=== PATIENT | female | born 1970 | race Caucasian/White ===

== ENCOUNTER → 2017-02-27 | Outpatient (CLI) | payer OTHER ==
--- NOTE | 2017-02-28 07:38 | PN ---
PROGRESS NOTE FROM SLEEP CENTER This 46-year-old female patient was diagnosed having obstructive sleep apnea back in 2013. At that time, the patient was given CPAP therapy at pressure of 11 cm of water. After using it for a few months, the patient ended up quitting the treatment as she did not feel it was helping a whole lot. Over the patient 3 years, her condition has gotten worse. She has gained around 5 pounds. She has become much more somnolent and sleep and she is snoring loud and she is waking up gasping for air and she is requesting a re-evaluation. She has bronchial asthma, which seems to be quite active at this point and she is also diagnosed having fibromyalgia. The other comorbid conditions including anxiety, depression, hypothyroidism, hypertension, obesity and diabetes mellitus. No other ( ) in the lower extremities. No sleep walking or sleep talking. No parasomnias. BP is 126/62, pulse 102, respirations 16, temperature 97.4, BMI is 48.5. Weight is 270. Height is 5 feet 2 inches. Saturation 97% on room air. GENERAL APPEARANCE: Calm, comfortable. HEENT: Mallampati class 3 to 4. No goiter or neck mass. LUNGS: Clear to auscultation. HEART: Sounds regular rate and rhythm. Normal S1 and S2. ABDOMEN: Soft, nontender. No organomegaly. EXTREMITIES: No edema. No cyanosis or clubbing. IMPRESSION: 1. Symptomatic obstructive sleep apnea based on the previous evaluation in 2013. Patient had an AHI of 17. Currently on no treatment. Clinically worse and she is requesting re-evaluation. 2. Fibromyalgia. 3. Bronchial asthma. 4. Depression. 5. Anxiety. 6. Hypothyroidism. 7. Hypertension. 8. Diabetes mellitus. 9. Obesity with a body mass index of 48.5. Current weight is 270. PLAN: Will need a re-evaluation. Proceed with a PSG and CPAP therapy is to follow. Encourage weight loss. Implement good sleep hygiene measures. Will continue to follow. DARIN
== END ==
LOC: SLEEP 15:35
PROVIDERS: ATTEND Internal Medicine Critical Care Medicine
DX: G47.33 Obstructive sleep apnea (adult) (pediatric) (principal); M79.1 Myalgia; F41.9 Anxiety disorder, unspecified; F32.9 Major depressive disorder, single episode, unspecified; E03.9 Hypothyroidism, unspecified; I10 Essential (primary) hypertension; E11.9 Type 2 diabetes mellitus without complications; E66.9 Obesity, unspecified; J45.909 Unspecified asthma, uncomplicated; Z68.42 Body mass index [BMI] 45.0-49.9, adult

== ENCOUNTER → 2017-06-28 | Outpatient (CLI) | payer OTHER ==
--- NOTE | 2017-06-28 22:32 | MR ---
MR brain without contrast HISTORY: Memory loss and muscle spasms Multiplanar multisequence imaging through the brain. There is no restricted diffusion. There are normal vascular flow voids. The orbits show symmetric norah earance. Scattered hyperintensities are present within the deep white matter on inversion recovery an d T2-weighted sequences, approximately 20 lesions are present. There is no hemorrhage or hydrocephalu s. Corpus callosum, pituitary, cervical medullary junction, cerebellopontine angles are unremarkable. IMPRESSION: Nonspecific white matter demyelination. Consider migraine headaches, hypertension, Lyme d isease, vasculitis, multiple sclerosis in the appropriate clinical setting. Follow-up as indicated..
== END | disposition home or self-care (01) ==
LOC: RADMRIMAIN 21:21
PROVIDERS: ATTEND Internal Medicine
DX: R41.3 Other amnesia (principal)
CPT/HCPCS: 70551

== ENCOUNTER 2017-08-14 09:33 | Day surgery (SDC) | payer OTHER ==
[2017-08-14] MEDS ORDERED: LACTATED RINGERS 1,000 ML IV SCH (09:45)
[2017-08-14 10:00] VITALS: RESP 16; TEMP 97
[2017-08-14] MEDS ORDERED: LIDOCAINE 1% 20 ML VIAL (10MG/ML) FOR IV START INTRADERMA ONE (10:08)
[2017-08-14] MEDS ORDERED: IV FLUID CONTINUATION 1,000 ML IV ONE (11:41)
--- NOTE | 2017-08-14 12:17 | FL ---
Fluoroscopy History: NEEDLE PLACEMENT FOR ATTEMPTED LUMBAR PUNCTURE 43 SEC FLUORO, 1 IMAGE SCANNED INTO PACS.
[2017-08-14 13:15] VITALS: BP 138/63; PULSE 88
[2017-08-14 16:16] LABS: Protein, Total 6.6 g/dL (6.2-8.2)
--- NOTE | 2017-08-15 14:36 | P.PCN ---
Date of Procedure: 08/14/17 Surgeon: Milad Santos Pathology: none sent Condition: stable Disposition: PACU Description of Procedure: PREOPERATIVE DIAGNOSIS: 1-rule out multiple sclerosis POSTOPERATIVE DIAGNOSIS: same PROCEDURE 1. Diagnostic lumbar puncture, aborted ANESTHESIA: Local with 1% lidocaine; conscious sedation with Versed only EBL: Minimal PROCEDURE INDICATION: The patient with persistent right-sided numbness due to presumed demyelinating disease who presents for diagnostic LP as ordered by Dr. Mayberry. Brain MRI positive for possible demyelinated lesions. No use of blood thinners. PROCEDURE DESCRIPTION / TECHNIQUE: The patient was seen and identified in the preoperative area. Risks, benefits, complications, and alternatives were discussed with the patient, including but not limited to bleeding, infection, nerve damage, allergic reactions to medications, and spinal headache. The patient agreed to proceed with the procedure and signed the consent after all questions were answered. Vital signs were stable. Patient was taken to the procedure room and time out was completed to confirm patient position, procedure, area of pain, and allergies. The patient was placed in the sitting position on procedure table with help from nursing staff. The lumbosacral area was prepped and draped in the usual sterile fashion. Vital signs were closely monitored during the procedure. After localization with 1% lidocaine, a 22-gauge 5-inch spinal needle was placed first in the L3-L4 interspace. What felt like a dural pop was noted and the patient noted a paresthesia in her LLE but no fluid could be obtained. I attempted two more times with a landmark approach and could not obtain any CSF. I then asked the patient to lie prone and attempted the lumbar puncture with fluoroscopic guidance. Despite X-ray guidance, I was still unable to pass bony landmarks. I attempted the procedure twice more with fluoroscopy and then aborted the procedure. COMPLICATIONS: None COMMENTS: None DISPOSITION / PLANS: The patient was placed in a supine position and transferred to the recovery area in a stable condition for observation. There was no evidence of lower extremity motor or sensory deficit after the procedure. Patient was discharged from the recovery room after meeting discharge criteria. Home discharge instructions were given to the patient by the staff, particularly with regards to consumption of fluids and caffeine in order to prevent PDPH. I will reschedule the patient with my colleague Dr. Quique Zeng if she still wishes the LP to be done in the future.
[2017-08-16 09:31] LABS: Albumin 3.91 g/dL (3.80-4.90); Gamma Globulin 0.72 g/dL (0.70-1.50)
== END 2017-08-14 13:37 | disposition home or self-care (01) ==
LOC: ORPAIN 09:33
PROVIDERS: ATTEND Anesthesiology
DX: M54.9 Dorsalgia, unspecified (principal); R53.1 Weakness; H53.8 Other visual disturbances; J45.909 Unspecified asthma, uncomplicated; F41.9 Anxiety disorder, unspecified; K21.9 Gastro-esophageal reflux disease without esophagitis; Z88.5 Allergy status to narcotic agent; Z91.09 Other allergy status, other than to drugs and biological substances
CPT/HCPCS: 81025; 84165; 62270; J2250; J2001; J3010; 99152; 99153

== ENCOUNTER → 2017-08-23 | Outpatient (CLI) | payer OTHER ==
[2017-08-23 10:12] LABS: Blood Urea Nitrogen 17 mg/dL (7-17)
== END | disposition home or self-care (01) ==
LOC: LABWHC1 09:37
PROVIDERS: ATTEND Psychiatry & Neurology Neurology
DX: M54.12 Radiculopathy, cervical region (principal)
CPT/HCPCS: 36415; 82565; 84520

== ENCOUNTER → 2017-08-31 | Outpatient (CLI) | payer OTHER ==
--- NOTE | 2017-09-01 00:40 | MR ---
EXAMINATION TYPE: MR cervical spine wo/w con DATE OF EXAM: 08/31/2017 COMPARISON: NONE HISTORY: Memory Loss, Dizzy, Weakness, Gadavist 12.5 TECHNIQUE: Multiplanar, multisequence images of the cervical spine were acquired utilizing 12.5 mL intravenous G adavist gadolinium contrast. Diffusion weighted imaging was performed. The cervical vertebra have fairly normal alignment. There is narrowing and decreased signal in the di sks throughout the cervical spine. There are posterior disc bulges and herniation at C3-4 C4-5 C5-6 a nd C6-7 with end impingement on the spinal canal. There is developmentally small canal and resultant spinal stenosis. There is flattening of the cervical spinal cord. The canal measures 3.5 mm at C5-6. The canal is 5 mm at C4-5. The canal is 5.5 mm at C3-4. There is no fracture. The brainstem is intact . I see no edema in the cervical cord in spite of the significant stenosis. The contrast images show no pathologic enhancement. IMPRESSION: Multilevel spondylotic changes. Multilevel posterior disc herniations with moderately severe spinal s tenosis at multiple levels. This is more severe at C5-6. The largest disc herniations are at C5-6 and C6-7.
== END | disposition home or self-care (01) ==
LOC: RADMRIMAIN 21:08
PROVIDERS: ATTEND Psychiatry & Neurology Neurology
DX: M48.02 Spinal stenosis, cervical region (principal); M50.222 Other cervical disc displacement at C5-C6 level; M47.812 Spondylosis without myelopathy or radiculopathy, cervical region; G35 Multiple sclerosis
CPT/HCPCS: 72156; A9581

== ENCOUNTER → 2017-09-24 | Outpatient (CLI) | payer OTHER ==
[2017-09-24 17:12] LABS: Blood Urea Nitrogen 12 mg/dL (7-17); C Reactive Protein 16.9 mg/L (<10.0)
== END | disposition home or self-care (01) ==
LOC: LABWHC1 16:03
PROVIDERS: ATTEND Psychiatry & Neurology Neurology
DX: M54.16 Radiculopathy, lumbar region (principal)
CPT/HCPCS: 36415; 82565; 84520; 85652; 86140

== ENCOUNTER → 2017-09-28 | Outpatient (CLI) | payer OTHER ==
--- NOTE | 2017-09-28 22:58 | MR ---
EXAMINATION TYPE: MR lumbar spine wo/w con DATE OF EXAM: 09/28/2017 COMPARISON: NONE HISTORY: Radiculopathy lumbar region CONTRAST: 0 mL intravenous Gadavist. TECHNIQUE: Multiplanar, multisequence images of the lumbar spine were acquired. FINDINGS: Cord terminates at the L1 level. L5-S1: There is broad central disc herniation. This extends into the left paracentral region. Correla te with left radicular symptoms. No AP spinal canal stenosis is present. There is moderate right and mild left foraminal narrowing. L4-L5: There is disc space narrowing present. Broad-based disc bulge is present in the left paracentr al region with moderate anterior thecal sac compression. Facet hypertrophy and ligamentum flavum laxi ty has posterior lateral thecal sac compression. Lateral canal narrowing is present. Neural foramen a re patent. L3-L4: No significant disc bulge or disc herniation. No spinal canal stenosis. No foraminal stenosi s. Neural foramen are patent.. L2-L3: Left paracentral disc bulge has mild anterior thecal sac compression. No cord contact is evide nt. No spinal canal stenosis present. Foramen are patent. L1-L2: Mild left and right paracentral disc bulge is present with anterior thecal sac contact. No AP spinal canal stenosis present. Neural foramen are patent T12-L1: No significant disc bulge or disc herniation. No spinal canal stenosis. No foraminal stenos is. No abnormal enhancement. IMPRESSION: 1. Broad-based disc bulge greater into the left paracentral region L5-S1. Correlate with left S1 radi cular symptoms. 2. Left paracentral disc bulge L4-5 with moderate anterior thecal sac compression. Facet hypertrophy and ligamentum flavum laxity contributing to some lateral canal narrowing. 3. Left paracentral disc bulge L2-L3 without spinal canal stenosis
== END | disposition home or self-care (01) ==
LOC: RADMRIMAIN 20:37
PROVIDERS: ATTEND Psychiatry & Neurology Neurology
DX: M51.17 Intervertebral disc disorders with radiculopathy, lumbosacral region (principal); M48.061 Spinal stenosis, lumbar region without neurogenic claudication; M51.06 Intervertebral disc disorders with myelopathy, lumbar region; M53.86 Other specified dorsopathies, lumbar region
CPT/HCPCS: 72158; A9581

== ENCOUNTER → 2018-12-06 | Outpatient (CLI) | payer MEDICARE, OTHER ==
--- NOTE | 2018-12-06 22:56 | MR ---
EXAMINATION TYPE: MR brain wo con DATE OF EXAM: 12/06/2018 COMPARISON: Prior MRI brain June 28, 2017 HISTORY: Abnormal findings on prior brain scans TECHNIQUE: Multiplanar, multisequence imaging of the brain and brainstem is performed without IV cont rast. FINDINGS: Diffusion weighted images demonstrate no evidence of a recent infarct or other diffusion abnormality. There is mild ventricular and sulcal prominence with slightly more prominent CSF over the bilateral f rontal lobes redemonstrated. There are some scattered foci of T2 hyperintensity seen throughout the d eep and periventricular white matter. Approximately 10 small scattered lesions are again seen in my e stimation. Midline structures demonstrate normal morphology. The craniocervical junction appears within normal limits. Normal vascular flow voids are present. The visualized sinuses are clear and the globes are i ntact. IMPRESSION: There is mild to moderate diffuse cerebral atrophy more prominent over the bilateral fron dylan lobes with mild nonspecific white matter changes favored on basis of product of chronic small ves missael ischemic change. No significant change from prior MRI.
== END | disposition home or self-care (01) ==
LOC: RADMRIMAIN 19:25
PROVIDERS: ATTEND Internal Medicine
DX: I67.82 Cerebral ischemia (principal); G31.9 Degenerative disease of nervous system, unspecified
CPT/HCPCS: 70551

== ENCOUNTER 2020-10-06 12:06 | Emergency (ER) | payer OTHER, MEDICARE ==
[2020-10-06 12:22] VITALS: RESP 18; TEMP 98.4
[2020-10-06] MEDS ORDERED: HYDROcodone/APAP 5-325MG 1 EACH TAB PO STA (13:21)
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
[2020-10-06 14:59] VITALS: BP 136/88; PULSE 105
== END 2020-10-06 14:59 | disposition home or self-care (01) ==
LOC: EC 12:06
DX: Z04.1 Encounter for examination and observation following transport accident (principal); E11.9 Type 2 diabetes mellitus without complications; I10 Essential (primary) hypertension; Z79.4 Long term (current) use of insulin; Z79.51 Long term (current) use of inhaled steroids; Y92.410 Unspecified street and highway as the place of occurrence of the external cause; V89.2XXA Person injured in unspecified motor-vehicle accident, traffic, initial encounter
CPT/HCPCS: 71045; 99283

== ENCOUNTER → 2022-02-24 | Outpatient (CLI) | payer MEDICARE ==
--- NOTE | 2022-02-27 18:47 | MM ---
Reason for Exam: Screening (asymptomatic). Last mammogram was performed 3 year(s) and 8 month(s) ago. Patient History: Menarche at age 13. Patient has no children. Maternal cousin had breast cancer, age 60. Paternal aunt had breast cancer, age 42. Mother had breast cancer, age 55. Risk Values: Iqra 5 year model risk: 1.9%. NCI Lifetime model risk: 16.8%. Prior Study Comparison: 11/08/2012 Screening Mammogram, [facility]. 11/13/2013 Screening Mammogram, [facility]. 06/28/2018 Bilateral Screening Mammogram, [facility]. Tissue Density: There are scattered fibroglandular densities. Findings: Analyzed By CAD. Chronic nodularity posterior right upper quadrant on the right. No significant change from prior exams. Overall Assessment: Benign, BI-RAD 2 Management: Screening Mammogram of both breasts in 1 year. 1. Patient should continue monthly self breast exams. 2. A clinical breast exam by your physician is recommended on an annual basis. 3. This exam should not preclude additional follow-up of suspicious palpable abnormalities. Electronically signed and approved by: Jorge Luis Garcia M.D. Radiologist
== END | disposition home or self-care (01) ==
LOC: RADMAMWWP 13:09
PROVIDERS: ATTEND Family Medicine
DX: Z12.31 Encounter for screening mammogram for malignant neoplasm of breast (principal)
CPT/HCPCS: 77063; 77067

== ENCOUNTER → 2023-03-02 | Outpatient (CLI) | payer MEDICARE ==
--- NOTE | 2023-03-02 08:51 | MM ---
Reason for Exam: Screening (asymptomatic). Last mammogram was performed 1 year(s) and 1 month(s) ago. Patient History: Menarche at age 13. Patient has no children. Postmenopausal. Maternal cousin had breast cancer, age 60. Paternal aunt had breast cancer, age 42. Mother had breast cancer, age 55. Risk Values: Iqra 5 year model risk: 2.0%. NCI Lifetime model risk: 16.6%. Prior Study Comparison: 11/13/2013 Screening Mammogram, [facility]. 06/28/2018 Bilateral Screening Mammogram, [facility]. 02/24/2022 Bilateral MG 3D screening mammo w/cad, [facility]. Tissue Density: There are scattered fibroglandular densities. Findings: Analyzed By CAD. There is no suspicious group of microcalcifications or new suspicious mass in either breast. Benign calcifications within both breasts. Chronic nodularity in the right breast is stable. Overall Assessment: Benign, BI-RAD 2 Management: Screening Mammogram of both breasts in 1 year. A clinical breast exam by your physician is recommended on an annual basis and results should be correlated with mammographic findings. Note on Iqra scores and lifetime risk: 1. A Iqra score greater than 3% is considered moderate risk. If this is the case, consider specialist referral to assess eligibility for a risk reducing agent. If overall lifetime risk for the development of breast cancer is 20% or higher, the patient may qualify for future screening with alternating mammogram and breast MRI. Electronically signed and approved by: Jose Mann D.O.
== END | disposition home or self-care (01) ==
LOC: RADMAMWWP 06:57
PROVIDERS: ATTEND Family Medicine
DX: Z12.31 Encounter for screening mammogram for malignant neoplasm of breast (principal); Z78.0 Asymptomatic menopausal state; Z80.3 Family history of malignant neoplasm of breast
CPT/HCPCS: 77063; 77067

== ENCOUNTER → 2023-11-05 | Outpatient (CLI) | payer MEDICARE ==
--- NOTE | 2023-11-05 13:33 | US ---
EXAMINATION TYPE: US venous doppler duplex UE RT DATE OF EXAM: 11/05/2023 COMPARISON: NONE CLINICAL INDICATION: Female, 53 years old with history of M25.431 EFFUSION, RIGHT WRIST; Bruising and swelling of right anterior hand at blood draw site since sunday SIDE PERFORMED: Right Right Arm: Negative for DVT Left Arm: NA IMPRESSION: Grayscale, color doppler, spectral doppler imaging performed of the deep veins of the upper extremiti es. There is normal flow, compressibility and vascular waveforms.
== END | disposition home or self-care (01) ==
LOC: RADUSWWP 13:02
PROVIDERS: ATTEND Family Medicine
DX: M25.431 Effusion, right wrist (principal)